=== PATIENT | male | born 1975 | race American Indian/Alaskan Native ===

== ENCOUNTER 2017-11-14 12:54 | Day surgery (SDC) | payer OTHER ==
[2017-11-14] MEDS ORDERED: ZOFRAN IV PRN (13:39)
--- NOTE | 2017-11-14 13:39 | Anesthesia Consultation ---
Anesthesia Consult and Med Hx - Airway Anesthetic Teeth Evaluation: Good ROM Head & Neck: Adequate Mental/Hyoid Distance: Adequate Mallampati Class: Class II Intubation Access Assessment: Good - Pulmonary Exam CTA: Yes - Cardiac Exam Cardiac Exam: RRR - Pre-Operative Health Status ASA Pre-Surgery Classification: ASA2 Proposed Anesthetic Plan: General - Pulmonary Hx Smoking: Yes (1/2 PPD X 6 YRS) Hx Sleep Apnea: No (MABLE PRE SCREEN LOW RISK.) - Cardiovascular System Hx Hypertension: (X 2 YRS) - Other Systems Hx Cancer: No
--- NOTE | 2017-11-14 13:39 | Anesthesia Day of Surgery ---
Anesthesia Day of Surgery - Day of Surgery Patient Examined: Yes Patient H&P Reviewed: Yes Patient is NPO: Yes
[2017-11-14] MEDS ORDERED: DILAUDID IV NR (14:00)
[2017-11-14] MEDS ORDERED: LACTATED RINGERS 1,000 ML IV SCH (14:00)
[2017-11-14] MEDS ORDERED: ROCEPHIN/NS 1 GM/50 ML 1 GM/50 ML BAG IV ONE (14:20)
[2017-11-14] MEDS ORDERED: NACL 0.9% 1000 ML 1,000 ML IV SCH (14:21)
[2017-11-14] MEDS ORDERED: cefTRIAXone 1 GM in NACL 0.9% 20 ML IV NR (14:30)
--- NOTE | 2017-11-14 15:36 | XRay Report ---
ABDOMEN RADIOGRAPHS INDICATION: Kidney stone. COMPARISON: None similar at this institution. FINDINGS: Frontal abdominal radiographs demonstrate no suspicious radiopaque calcifications or pneumatosis. Lung bases incompletely imaged. Overall nonobstructive bowel gas pattern with few air containing bowel loops in the left hemiabdomen measuring up to 2.5 cm caliber. Bilateral acetabular hypertrophy laterally. CONCLUSION: No acute radiographic abnormality, as described. Thank you for the opportunity to participate in this patient's care.
[2017-11-14] MEDS ORDERED: DIPRIVAN 10 MG/ML IV ONE (15:52)
[2017-11-14] MEDS ORDERED: DECADRON ONE (15:52)
[2017-11-14] MEDS ORDERED: ZOFRAN ONE (15:52)
[2017-11-14] MEDS ORDERED: XYLOCAINE MPF 2% ONE (15:52)
[2017-11-14] MEDS ORDERED: SUBLIMAZE ONE (15:52)
[2017-11-14] MEDS ORDERED: ePHEDrine SULFATE ONE (16:27)
[2017-11-14] MEDS ORDERED: DILAUDID IV ONE (16:28)
[2017-11-14] MEDS ORDERED: OMNIPAQUE 300 MG/50 ML (CATH LAB) IV ONE (16:40)
[2017-11-14] MEDS ORDERED: WATER FOR IRRIG STERILE IR ONE (16:40)
--- NOTE | 2017-11-14 17:25 | Short Stay Summary ---
Short Stay Documentation Date of service: 11/14/17 - History H&P: obtained from office - Allergies and Medications Current Medications: Allergies No Known Allergies Allergy (Verified 11/13/17 13:32) Home Medications Medication Instructions Recorded Confirmed Last Taken Type Ciprofloxacin HCl [Cipro] 500 mg PO BID 11/13/17 11/14/17 11/13/17 History Hydrochlorothiazide [HCTZ] 25 mg PO QDAY 11/13/17 11/14/17 11/13/17 History Lisinopril [Zestril] 20 mg PO DAILY 11/13/17 11/14/17 11/14/17 History Active Medications Hydromorphone HCl (Dilaudid) 0.5 mg IV Q10MIN PRN PRN Reason: Pain , Severe (7-10) Lactated Ringer's (Lactated Ringers) 1,000 mls @ 42 mls/hr IV DIRECT DEENA Sodium Chloride (Nacl 0.9% 1000 Ml) 1,000 mls @ 42 mls/hr IV DIRECT DEENA Stop: 11/14/17 23:59 Ceftriaxone Sodium 1 gm/ (Sodium Chloride) 20 mls @ 2 mls/min IV PREOP NR Stop: 11/14/17 23:59 Ondansetron HCl (Zofran) 4 mg IV ONCE PRN PRN Reason: Nausea And Vomiting - Brief post op/procedure progress note Date of procedure: 11/14/17 Pre-op diagnosis: left uret 9mm stone Post-op diagnosis: same Procedure: left renaleswl cysto left rpg, open end cath and removal Anesthesia: GETA Findings: dif vis stone; dif w rpg but def vis and pushed back to kidney Surgeon: JETHRO MITCHELL Estimated blood loss: minimal Pathology: none Condition: stable - Hospital course Hospital course: orpacuhome - Disposition Condition at discharge: Good Disposition: DC- TO HOME OR SELFCARE Short Stay Discharge Plan Activity: advance as tolerated Diet: advance as tolerated Follow up with: JETHRO MITCHELL MD [Staff Physician] - 7 Days Prescriptions: Cefuroxime [Ceftin] 500 mg PO Q12H #10 tablet Cefuroxime [Ceftin] 500 mg PO Q12H #20 tablet Oxycodone HCl/Acetaminophen [Percocet 10/325 mg] 0.5 - 1 each PO Q6HR PRN #25 tablet PRN Reason: Pain
[2017-11-14] MEDS ORDERED: NACL 0.9% 1000 ML 1,000 ML ONE (17:38)
[2017-11-14] MEDS: DILAUDID IV PRN ×2 (18:05→18:15)
--- NOTE | 2017-11-14 18:05 | Post Anesthesia Evaluation ---
- Post Anesthesia Evaluation Patient Participated: Yes Airway Patent: Yes Stable Respiratory Function: Yes Nausea/Vomiting: No Temp > 96.8F: Yes Pain Manageable: Yes Adequeate Hydration: Yes Anesthesia Complications: No Block Receding Appropriately: Not Applicable
[2017-11-14 19:55] VITALS: BP 145/78
--- NOTE | 2017-12-16 07:34 | Operative Report ---
PREOPERATIVE DIAGNOSIS: Left ureteral 9 mm stone, proximal. POSTOPERATIVE DIAGNOSIS: Left ureteral 9 mm stone, proximal. PROCEDURE: Left renal ESWL, cystoscopy, left RPG open-ended catheter placement and removal. ANESTHESIA: General. FINDINGS: Difficult to visualize stone, difficult with RPG, but definitely visualized and pushed back to kidney. SURGEON: Ganesh Buckner M.D. ESTIMATED BLOOD LOSS: Minimal. PATHOLOGY: None. CONDITION: Stable. CLINICAL INDICATIONS: Counseled RCBA, antibiotics, SCDs. DESCRIPTION OF PROCEDURE: The patient was transferred to OR suite in supine position, anesthesia begun. Biplanar fluoroscopy was used to target the stone. Prior to anesthesia, we thought we had seen the stone within the proximal ureter and we were able to target after anesthesia. We were unable to visualize the stone easily. At this point, the patient was placed in stirrups. 5-K[place]akh open-ended catheter passed up the left ureter. Contrast injected. Filling defect identified. This stone seemed to push back into the left renal pelvis and lower pole easily visible as a filling defect. At this point, biplanar fluoroscopy was set up. 2500 shocks total were delivered with intermittent repositioning as necessary. The patient was awakened and transferred to PACU in good and stable condition. PLAN: Given some difficulty with visualization. Suspected may need possible staged repeat procedure rather lithotripsy or ureteroscopy depending on outcome. JOB# [id number] ATS/NTS
== END 2017-11-14 20:10 | disposition home or self-care (01) ==
LOC: OR 12:54
PROVIDERS: ATTEND Urology
DX: N20.0 Calculus of kidney (principal); I10 Essential (primary) hypertension; Z87.891 Personal history of nicotine dependence
CPT/HCPCS: 36415; 50590; 74018; 84132; 93005; 93010; A4217; C1726; J0696; J1100; J1170; J2405; J2704; J3010; J7030; J7120

== ENCOUNTER 2017-11-15 06:42 | Emergency (ER) | payer OTHER ==
--- NOTE | 2017-11-15 08:06 | Emergency Department Report ---
HPI - General Chief Complaint: Allergic Reaction Time Seen by Provider: 11/15/17 08:05 - HPI HPI: 41-year-old male with a past medical history hypertension and kidney stones presents to the hospital with possible allergic reaction. Patient just had outpatient lithotripsy performed by Dr. Buckner. He was discharged on ceftin and Percocet. Last dose of these medications was yesterday. Patient woke up this morning with right bottom lip swelling that has been unchanged since onset. Patient also has also been on lisinopril at least 2-3 years with last dose yesterday and this morning. He denies rash, shortness of breath, difficulty swallowing, tongue or throat swelling. ED Past Medical Hx - Past Medical History Hx Hypertension: (X 2 YRS) Hx Kidney Stones: Yes Hx HIV: No - Surgical History Past Surgical History?: No - Social History Smoking Status: Current Some Day Smoker Substance Use Type: None - Medications Home Medications: Home Medications Medication Instructions Recorded Confirmed Last Taken Type Ciprofloxacin HCl [Cipro] 500 mg PO BID 11/13/17 11/14/17 11/13/17 History Hydrochlorothiazide [HCTZ] 25 mg PO QDAY 11/13/17 11/14/17 11/13/17 History Oxycodone HCl/Acetaminophen 0.5 - 1 each PO Q6HR PRN #25 tablet 11/14/17 Unknown Rx [Percocet 10/325 mg] Famotidine [Pepcid] 20 mg PO BID #10 tablet 11/15/17 Unknown Rx Levofloxacin [Levaquin] 750 mg PO QDAY #7 tablet 11/15/17 Unknown Rx Prednisone [predniSONE 10 mg 10 mg PO .TAPER #1 tab.ds.pk 11/15/17 Unknown Rx (6-Day Pack, 21 Tabs)] amLODIPine [Norvasc] 10 mg PO DAILY #30 tab 11/15/17 Unknown Rx diphenhydrAMINE [Benadryl CAP] 25 mg PO Q6HR PRN #30 capsule 11/15/17 Unknown Rx ED Review of Systems ROS: Stated complaint: LIP SWELLING Other details as noted in HPI Comment: All other systems reviewed and negative Other: Constitutional: No fevers chills Eyes: No eye pain visual changes or discharge ENT: No ear pain or throat pain Neck: Denies pain Respiratory: Denies cough wheezing shortness of breath Cardiovascular: Denies chest pain, palpitations, syncope GI: Denies abdominal pain, nausea, vomiting, diarrhea : Denies dysuria Musculoskeletal: Denies back pain, joint swelling Skin: Denies rash, lesions, erythema Neurologic: Denies headache, numbness, weakness Psychiatric: Denies suicidal ideation, hallucinations Physical Exam - Physical Exam Vital Signs: Vital Signs 11/15/17 07:40 Temperature 98.2 F Pulse Rate 61 Respiratory 20 Rate Blood Pressure 169/112 O2 Sat by Pulse 100 Oximetry Physical Exam: General: No limitations, patient is alert in no acute distress Head exam: Atraumatic, normocephalic Eyes exam: Normal appearance ENT: Moist mucous membrane, normal oropharynx. Right lower lip swelling. No posterior pharyngeal tongue swelling Neck exam: Normal inspection, full range of motion, no meningismus nontender Respiratory exam: Clear to auscultation bilateral, no wheezes, rales, crackles Cardiovascular: Normal rate and rhythm, normal heart sounds Abdomen: Soft, nondistended, and nontender, with normal bowel sounds, no rebound, or guarding Extremity: Full range of motion normal inspection no deformity Back: Normal Inspection, full range of motion, no tenderness Neurologic: Alert, oriented x3, cranial nerves intact, no motor or sensory deficit Psychiatric: normal affect, normal mood Skin: Warm, dry, intact ED Course Vital Signs 11/15/17 07:40 Temperature 98.2 F Pulse Rate 61 Respiratory 20 Rate Blood Pressure 169/112 O2 Sat by Pulse 100 Oximetry - Reevaluation(s) Reevaluation #1: 11/15/17 10:48 Patient is observed in the ER for several hours after receiving Benadryl, Solu- Medrol, and Pepcid. No advancement in the swelling. Patient denies any other symptoms. Blood pressure remains elevated despite taking a lisinopril therefore clonidine 0.1 given in the ED - Consultations Consultation #1: 11/15/17 8:48 Case was discussed with Dr. Buckner who recommends changing antibiotics to fluoroquinolone/Levaquin ED Medical Decision Making - Medical Decision Making Patient does not have any advancement and lip swelling or other signs of allergic reaction or airway edema. Patient with a clonidine prior to discharge but did not want to wait for his blood pressure to decrease prior to discharge. Patient remains asymptomatic without signs of hypertension, blurred vision, chest pain, shortness of breath, or focal numbness/weakness. Patient will be instructed to discontinue lisinopril. Norvasc 10 mg will be prescribed instead. Patient be treated empirically for allergic reaction although likely TONY inhibitor related reaction. Antibiotic will be switched to Levaquin. First dose was given in the ED without signs of worsening allergic reaction - Differential Diagnosis TONY inhibitor reaction, allergic reaction Critical Care Time: No Critical care attestation.: If time is entered above; I have spent that time in minutes in the direct care of this critically ill patient, excluding procedure time. ED Disposition Clinical Impression: Angioedema, Adverse reaction to TONY inhibitor drug, Uncontrolled hypertension Disposition: - TO HOME OR SELFCARE Is pt being admited?: No Does the pt Need Aspirin: No Condition: Stable Instructions: Hypertension (ED), Angioedema (ED) Additional Instructions: Discontinue your current Ceftin antibiotic and your lisinopril. You have been prescribed Norvasc 10 mg for your blood pressure and Levaquin 750 mg for your urine instead. Please return if symptoms worsen as indicated by your discharge instructions. Follow-up with your primary care doctor or the doctor provided. Also follow up with your urologist as scheduled Prescriptions: amLODIPine [Norvasc] 10 mg PO DAILY #30 tab diphenhydrAMINE [Benadryl CAP] 25 mg PO Q6HR PRN #30 capsule PRN Reason: Allergy Symptoms Famotidine [Pepcid] 20 mg PO BID #10 tablet Levofloxacin [Levaquin] 750 mg PO QDAY #7 tablet Prednisone [predniSONE 10 mg (6-Day Pack, 21 Tabs)] 10 mg PO .TAPER #1 tab.ds.pk Referrals: PRIMARY CARE, [Primary Care Provider] - 2-3 Days DEANNA MARTIN MD [Staff Physician] - 2-3 Days Time of Disposition: 10:54
[2017-11-15] MEDS ORDERED: PEPCID IV ONE (08:12)
[2017-11-15] MEDS ORDERED: BENADRYL IV ONE (08:12)
[2017-11-15] MEDS ORDERED: LEVAQUIN PO ONE (10:22)
[2017-11-15] MEDS ORDERED: CATAPRES PO ONE (10:34)
[2017-11-15 11:17] VITALS: BP 158/122
== END 2017-11-15 11:18 | disposition home or self-care (01) ==
LOC: ED 06:42
DX: T78.3XXA Angioneurotic edema, initial encounter (principal); T50.995A Adverse effect of other drugs, medicaments and biological substances, initial encounter; I10 Essential (primary) hypertension; F17.200 Nicotine dependence, unspecified, uncomplicated; Z87.442 Personal history of urinary calculi; Y92.89 Other specified places as the place of occurrence of the external cause
CPT/HCPCS: 96374; 96375; 99283; J1200; J2930